=== PATIENT | female | born 1995 | race Caucasian/White ===

== ENCOUNTER 2016-06-02 23:47 | Emergency (ER) | payer OTHER ==
[~2016-06-02] VITALS: Ht 165.1 cm; Wt 109.7 kg
[~2016-06-02 23:47] MED LIST: CEFDINIR300 MG PO; IBUPROFEN200 M1 PO; MIRENA52 MG IY; NOHOMEMEDS; NORCO 5/3251 TABLET PO; PERCOCET 5/31 TABLET PO; PHENERGAN25 MG PR; PRILOSEC40 MG PO; PROMETHAZINE HC25 M1 PO; REGLAN10 MG PO; TRAMADOL HCL50 MG PO; ULTRACET1 TABLET PO
[2016-06-02 23:52] VITALS: BP 141/91
== END 2016-06-03 05:23 | disposition left against medical advice (07) ==
LOC: EME 23:47
DX: Z04.8 Encounter for examination and observation for other specified reasons (principal); Z53.21 Procedure and treatment not carried out due to patient leaving prior to being seen by health care provider